=== PATIENT | male | born 1935 | race Caucasian/White ===

== ENCOUNTER → 2019-04-25 | Outpatient (CLI) | payer BC ==
[~2019-04-25] MED LIST: ANALGESIC325 MG PO; ASPIR 8181 MG PO; ASPIRIN81 M2 PO; AUGMENTIN 875875 MG PO; AVODART0.5 MG PO; CARDURA4 MG PO; CRESTOR10 MG PO; DIOVAN320 MG PO; EXELON 9.5 MG9.5 MG TD; EXELON1 EACH TD; FINASTERIDE5 MG PO; HYDROCHLOROTHIA25 M1 PO; HYDROCHLOROTHIA25 M2 GT; IBUPROFEN 800800 M1 GT; LAMISIL250 MG PO; LIPITOR 20 MG T20 M1 PO; LISINOPRIL10 MG PO; POTASSIUM CHLO20 ME1 PO; PREDNISONE 5 MG5 M1 PO; PRINIVIL10 MG PO; PROSCAR 5MG TABL5 M1 PO; STRESS B PO; TAMSULOSIN HCL0.4 M1; VITAMIN B-12500 MC1 PO; VITAMIN C + RO500 MG PO; VITAMIN D1000 UNI1 PO; [UNRECOGNIZED DRUG - OTHER]; [UNRECOGNIZED DRUG - OTHER] PO
== END ==
LOC: CANPRECLI → SJCVC 12:21
DX: Z53.9 Procedure and treatment not carried out, unspecified reason (principal)